=== PATIENT | female | born 1955 | race Caucasian/White ===

== ENCOUNTER 2020-03-28 21:37 | Emergency (ER) | payer MEDICARE, MEDICAID ==
[~2020-03-28] VITALS: Ht 162.5 cm; Wt 58.9 kg
[2020-03-28] MEDS ORDERED: LACTATED RINGERS 1,000 ML IV ONE (22:00)
[2020-03-28] MEDS ORDERED: BENZONATATE 100 MG (TESSALON) CAPSULE PO ONE (22:00)
[2020-03-28 22:08] LABS: BASOPHILS % (AUTO) 0 % (0-10); EOSINOPHILS % (AUTO) 1 % (0-10); HEMATOCRIT 34 % (35-52); HEMOGLOBIN 11.5 g/dL (11.5-16.0); LYMPHOCYTES # (AUTO) 1.2 10^3/uL (1.0-4.0); LYMPHOCYTES % (AUTO) 28 % (12-44); MEAN CORPUSCULAR HEMOGLOBIN 30 pg (25-34); MEAN CORPUSCULAR HGB CONC 34 g/dL (32-36); MEAN CORPUSCULAR VOLUME 90 fL (80-99); MEAN PLATELET VOLUME 8.8 fL (9.0-12.2); MONOCYTES # (AUTO) 0.3 10^3/uL (0.0-1.0); MONOCYTES % (AUTO) 7 % (0-12); NEUTROPHILS # (AUTO) 2.7 10^3/uL (1.8-7.8); NEUTROPHILS % (AUTO) 64 % (42-75); PLATELET COUNT 296 10^3/uL (130-400); WHITE BLOOD COUNT 4.1 10^3/uL (4.3-11.0)
[2020-03-28 22:17] LABS: ALBUMIN 3.9 GM/DL (3.2-4.5)
[2020-03-28 22:18] LABS: POTASSIUM 3.2 MMOL/L (3.6-5.0)
[2020-03-28 22:19] LABS: CALCIUM 8.4 MG/DL (8.5-10.1)
[2020-03-28 22:20] LABS: TOTAL PROTEIN 7.1 GM/DL (6.4-8.2)
[2020-03-28 22:22] LABS: BILIRUBIN,TOTAL 0.3 MG/DL (0.1-1.0)
[2020-03-28 22:24] LABS: CREATININE SERUM 0.98 MG/DL (0.60-1.30)
[2020-03-28] MEDS ORDERED: KCL 10 MEQ TAB (MICRO K) PO ONE (22:45)
--- NOTE | 2020-03-28 22:45 | NUR ---
PATIENT SON CONTACTED WITH PATIENT PERMISSION AND GIVEN UPDATE ON TESTING AND RESULTS THUS FAR. SON NAME IS BRANDON NUMBER IS [phone]. INFORMED WILL CALL WITH MORE INFORMATION IT BECOMES AVAILABLE.
[2020-03-28 23:04] LABS: BILIRUBIN,URINE NEGATIVE (NEGATIVE); CLARITY,URINE CLEAR; COLOR,URINE YELLOW; GLUCOSE, URINE (UA) NEGATIVE (NEGATIVE); KETONES,URINE NEGATIVE (NEGATIVE); LEUKOCYTE ESTERASE ,URINE NEGATIVE (NEGATIVE); NITRITE,URINE NEGATIVE (NEGATIVE); PROTEIN,URINE NEGATIVE (NEGATIVE)
[2020-03-28 23:12] LABS: BACTERIA,URINE NEGATIVE /HPF; SQUAMOUS EPITHELIAL CELL,UR 0-2 /HPF
--- NOTE | 2020-03-28 23:27 | ED General ---
General Chief Complaint: Cough/Cold/Flu Symptoms Stated Complaint: SOB/CHEST PAIN/COVID + Nursing Triage Note: TESTED POSITIVE FOR COVID 19 ON THURSDAY THE March, THIS WAS THE FIRST DAY OF SYMPTOMS ACCORDING TO THE PATIENT. PATIENT ARRIVES VIA EMS TO ROOM 9. IS A&O X4 WITH CALL LIGHT IN REACH. O2 CHALLENGE TO ROOM AIR SUCCESSFUL WITH SATURATIONS IN THE MID 90'S. Nursing Sepsis Screen: Possible Sepsis Risk Source of Information: Patient Exam Limitations: No Limitations History of Present Illness Date Seen by Provider: Mar 28, 2020 Time Seen by Provider: 21:40 Initial Comments This 54-year-old woman presents to the emergency room via EMS with complaints of shortness of breath. EMS reports oxygen saturation was 90% on room air. Her saturations easily resuscitated with nasal cannula support. Patient also reports of worsening cough. She was diagnosed with Covid the day of symptom onset 8 days ago. She was prescribed a azithromycin but no steroids. She denies any history of cardiopulmonary problems. She is not a smoker. She also complains of chest pain, particularly with coughing and deep breathing. Patient has also had persistent diarrhea but no nausea or vomiting. Allergies and Home Medications Allergies Coded Allergies: No Known Drug Allergies (Unverified , 03/29/20) Home Medications Benzonatate 100 Mg Capsule, 200 MG PO TID PRN for COUGH Prescribed by: YOHANA STANFORD on 03/29/2052 Cefdinir 300 Mg Capsule, 300 MG PO BID Prescribed by: YOHANA STANFORD on 03/29/2052 Patient Home Medication List Home Medication List Reviewed: Yes Review of Systems Review of Systems Constitutional: no symptoms reported EENTM: no symptoms reported Respiratory: see HPI Cardiovascular: see HPI Gastrointestinal: see HPI Genitourinary: no symptoms reported : No Musculoskeletal: no symptoms reported Skin: no symptoms reported Psychiatric/Neurological: No Symptoms Reported Hematologic/Lymphatic: No Symptoms Reported Immunological/Allergic: no symptoms reported Past Otjbyfr-Suvxwr-Tuuucn Hx Past Med/Social Hx: Reviewed Nursing Past Med/Soc Hx Patient Social History Alcohol Use: Denies Use Recent Infectious Disease Expo: Yes (COVID 19) Recent Hopitalizations: No Seasonal Allergies Seasonal Allergies: No Past Medical History Surgeries: Yes ("NECK SURGERY FOR ANEURYSM" ELBOW) Orthopedic, Vascular Surgery Respiratory: No Cardiac: No Neurological: No : No Reproductive Disorders: No 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 oz. 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 Skin: Normal Color, Warm/Dry Focused Exam Lactate Level 03/28/20 21:40: Lactic Acid Level 1.30 Lactic Acid Level Progress/Results/Core Measures Suspected Sepsis Recent Fever Within 48 Hours: Yes Infection Criteria Present: Documented Infection New/Unexplained Altered Menta: No Sepsis Screen: Possible Sepsis Risk SIRS Temperature: Pulse: 93 Respiratory Rate: 22 Laboratory Tests 03/28/20 21:40: White Blood Count 4.1L Blood Pressure 127 /56 Mean: 79 03/28/20 21:40: Lactic Acid Level 1.30 Laboratory Tests 03/28/20 21:40: Creatinine 0.98, INR Comment 1.0, Platelet Count 296, Total Bilirubin 0.3 Results/Orders Lab Results Laboratory Tests Test 03/28/20 21:40 03/28/20 22:55 Range/Units White Blood Count 4.1 L 4.3-11.0 10^3/uL Red Blood Count 3.78 L 3.80-5.11 10^6/uL Hemoglobin 11.5 11.5-16.0 g/dL Hematocrit 34 L 35-52 % Mean Corpuscular Volume 90 80-99 fL Mean Corpuscular Hemoglobin 30 25-34 pg Mean Corpuscular Hemoglobin Concent 34 32-36 g/dL Red Cell Distribution Width 11.9 10.0-14.5 % Platelet Count 296 130-400 10^3/uL Mean Platelet Volume 8.8 L 9.0-12.2 fL Immature Granulocyte % (Auto) 0 % Neutrophils (%) (Auto) 64 42-75 % Lymphocytes (%) (Auto) 28 12-44 % Monocytes (%) (Auto) 7 0-12 % Eosinophils (%) (Auto) 1 0-10 % Basophils (%) (Auto) 0 0-10 % Neutrophils # (Auto) 2.7 1.8-7.8 10^3/uL Lymphocytes # (Auto) 1.2 1.0-4.0 10^3/uL Monocytes # (Auto) 0.3 0.0-1.0 10^3/uL Eosinophils # (Auto) 0.0 0.0-0.3 10^3/uL Basophils # (Auto) 0.0 0.0-0.1 10^3/uL Immature Granulocyte # (Auto) 0.0 0.0-0.1 10^3/uL Prothrombin Time 13.0 12.2-14.7 SEC INR Comment 1.0 0.8-1.4 Activated Partial Thromboplast Time 29 24-35 SEC D-Dimer 0.80 H 0.00-0.49 UG/ML Sodium Level 136 135-145 MMOL/L Potassium Level 3.2 L 3.6-5.0 MMOL/L Chloride Level 102 98-107 MMOL/L Carbon Dioxide Level 19 L 21-32 MMOL/L Anion Gap 15 H 5-14 MMOL/L Blood Urea Nitrogen 17 7-18 MG/DL Creatinine 0.98 0.60-1.30 MG/DL Estimat Glomerular Filtration Rate 59 BUN/Creatinine Ratio 17 Glucose Level 111 H 70-105 MG/DL Lactic Acid Level 1.30 0.50-2.00 MMOL/L Calcium Level 8.4 L 8.5-10.1 MG/DL Corrected Calcium 8.5 8.5-10.1 MG/DL Magnesium Level 2.0 1.6-2.4 MG/DL Total Bilirubin 0.3 0.1-1.0 MG/DL Aspartate Amino Transf (AST/SGOT) 22 5-34 U/L Alanine Aminotransferase (ALT/SGPT) 16 0-55 U/L Alkaline Phosphatase 132 40-136 U/L Myoglobin 70.4 10.0-92.0 NG/ML Troponin I < 0.028 <0.028 NG/ML C-Reactive Protein High Sensitivity 3.01 H 0.00-0.50 MG/DL Total Protein 7.1 6.4-8.2 GM/DL Albumin 3.9 3.2-4.5 GM/DL Procalcitonin 0.06 <0.10 NG/ML Urine Color YELLOW Urine Clarity CLEAR Urine pH 6.0 5-9 Urine Specific [place] 1.015 L 1.016-1.022 Urine Protein NEGATIVE NEGATIVE Urine Glucose (UA) NEGATIVE NEGATIVE Urine Ketones NEGATIVE NEGATIVE Urine Nitrite NEGATIVE NEGATIVE Urine Bilirubin NEGATIVE NEGATIVE Urine Urobilinogen 0.2 < = 1.0 MG/DL Urine Leukocyte Esterase NEGATIVE NEGATIVE Urine RBC (Auto) NEGATIVE NEGATIVE Urine RBC NONE /HPF Urine WBC NONE /HPF Urine Squamous Epithelial Cells 0-2 /HPF Urine Crystals NONE /LPF Urine Bacteria NEGATIVE /HPF Urine Casts NONE /LPF Urine Mucus NEGATIVE /LPF Urine Culture Indicated CULTURE PENDING My Orders Orders - YOHANA ZAMORANO MD Ed Iv/Invasive Line Start (03/28/20 21:52) Lactated Ringers (Lr 1000 Ml Iv Solution (03/28/20 22:00) Benzonatate Capsule (Tessalon Perles) (03/28/20 22:00) Cbc With Automated Diff (03/28/20 21:53) Comprehensive Metabolic Panel (03/28/20 21:53) Blood Culture (03/28/20 21:53) Sputum Culture (03/28/20 21:53) Urinalysis (03/28/20 21:53) Urine Culture (03/28/20 21:53) Protime With Inr (03/28/20 21:53) Partial Thromboplastin Time (03/28/20 21:53) Chest 1 View, Ap/Pa Only (03/28/20 21:53) Ed Iv/Invasive Line Start (03/28/20 21:53) Vital Signs Adult Sepsis Patie Q15M (03/28/20 21:53) O2 (03/28/20 21:53) Remove Rings In Anticipation O (03/28/20 21:53) Lactic Acid Analyzer (03/28/20 21:53) Fibrin Degradation Products (03/28/20 22:35) Procalcitonin (Pct) (03/28/20 22:35) Hs C Reactive Protein (03/28/20 22:35) Magnesium (03/28/20 22:35) Ekg Tracing (03/28/20 22:35) Myoglobin Serum (03/28/20 22:35) Monitor-Rhythm Ecg Trace Only (03/28/20 22:35) Lipid Panel (03/29/20 06:00) Ed Iv/Invasive Line Start (03/28/20 22:35) Troponin I (03/28/20 22:35) Potassium Chloride (Tablet) (Klor Con Ta (03/28/20 22:45) Ct Angio Chest W (03/28/20 23:19) Iohexol Injection (Omnipaque 350 Mg/Ml 1 (03/29/20 00:00) Received Contrast (Hold Metformin- Contr (03/29/20 00:00) Ns (Ivpb) (Sodium Chloride 0.9% Ivpb Bag (03/29/20 00:00) Ceftriaxone For Iv Use (Rocephin For I (03/29/20 00:45) Ketorolac Injection (Toradol Injection) (03/29/20 01:00) Hydrocodone/Apap 5/325 Tablet (Lortab 5 (03/29/20 01:15) Hydrocodone/Apap 5/325 Tablet (Lortab 5 (03/29/20 01:10) Medications Given in ED Current Medications Medications Dose Ordered Sig/Ilan Route Start Time Stop Time Status Last Admin Dose Admin Acetaminophen/ Hydrocodone Bitart 1 tab ONCE ONCE PO 03/29/20 01:15 03/29/20 01:16 DC 03/29/20 01:15 1 TAB Benzonatate 200 mg ONCE ONCE PO 03/28/20 22:00 03/28/20 22:01 DC 03/28/20 22:10 200 MG Ceftriaxone Sodium 1000 mg/ Sterile Water 10 ml @ 200 mls/hr ONCE ONCE IV 03/29/20 00:45 03/29/20 00:47 DC 03/29/20 00:51 200 MLS/HR Iohexol 100 ml ONCE ONCE IV 03/29/20 00:00 03/29/20 00:01 DC 03/29/20 00:00 100 ML Ketorolac Tromethamine 15 mg ONCE ONCE IVP 03/29/20 01:00 03/29/20 01:01 DC 03/29/20 00:53 15 MG Lactated Ringer's 1,000 ml @ 0 mls/hr Q0M ONCE IV 03/28/20 22:00 03/28/20 22:01 DC 03/28/20 22:10 1,000 MLS/HR Potassium Chloride 20 meq ONCE ONCE PO 03/28/20 22:45 03/28/20 22:46 DC 03/28/20 22:43 20 MEQ Sodium Chloride 80 ml ONCE ONCE IV 03/29/20 00:00 03/29/20 00:01 DC 03/29/20 00:00 80 ML Vital Signs/I&O 03/28/20 03/28/20 03/29/20 21:40 21:40 01:09 Temp 37.1 Pulse 93 101 Resp 22 21 B/P (MAP) 127/56 (79) 122/92 Pulse Ox 96 95 O2 Delivery Room Air Room Air 03/29/20 00:00 Intake Total 1000 ml Balance 1000 ml Capillary Refill : Less Than 3 Seconds Blood Pressure Mean: 79 Progress Note #1: Time: 23:52 Progress Note Patient is feeling improved after receiving Tessalon Perles and a liter of IV fluid. Labs have been reviewed. She has mildly hypokalemic and was given oral potassium replacement in addition to IV LR. Labs were mostly unremarkable. D- dimer was elevated and CT angiogram of the chest is being obtained. There is no suggestion of concurrent bacterial pneumonia based on her work-up. Progress Note #2: Progress Note CT angiogram was negative for pulmonary emboli. However, there was a rounded density in the left lower lung concerning for infection and/or neoplasm. For t his reason further antibiotic therapy was pursued. She was given a dose of Rocephin in the ER which was followed by Omnicef prescription. She was advised to follow-up with her primary care provider in about 2 weeks for a discussion regarding monitoring of this density. ECG Initial ECG Impression Date: Mar 28, 2020 Initial ECG Impression Time: 22:54 Initial ECG Rate: 101 Initial ECG Rhythm: S.Tach Initial ECG Intervals: Normal Comment Sinus tachycardia with no ST elevation or depression. No abnormal intervals or axis deviation. Diagnostic Imaging Diagonstic Imaging: Xray Plain Films/CT/US/NM/MRI: chest Comments Chest x-ray viewed by me. Report not yet available. No focal consolidations or infiltrates to suggest pneumonia. Diagonstic Imaging: CT Plain Films/CT/US/NM/MRI: chest Comments CT angiogram of the chest was reviewed by me and stat rad report reviewed. Impression states "3.2 cm rounded density left lower lobe, which could be infectious versus neoplastic. Advise follow-up. Right lung nodules up to 6 mm, advise follow-up according to establish criteria." Patient was advised to seek follow-up with her primary care provider to discuss these results. Departure Impression Primary Impression: COVID-19 Additional Impressions: Chest pain Qualified Codes: R07.9 - Chest pain, unspecified Dyspnea Qualified Codes: R06.00 - Dyspnea, unspecified Hypokalemia Diarrhea Qualified Codes: R19.7 - Diarrhea, unspecified Lung density on x-ray Disposition: 01 HOME, SELF-CARE Condition: Improved Departure-Patient Inst. Decision time for Depature: 00:51 Patient Instructions: Coronavirus Disease 2019 (COVID-19) Overview, Hypokalemia (DC) Add. Discharge Instructions: Follow-up with Dr. Gold in the next couple of weeks. Discussed further imaging of the density found in your left lung on the CT scan. This needs to be follo wed in the primary care setting with more imaging in the future. Drink plenty of clear liquids to stay well-hydrated. You may treat your pain with ibuprofen up to 600 mg every 6 hours as needed and/or Tylenol (acetaminophen) up to 1000 mg every 6 hours as needed. Complete your antibiotics as prescribed. Call with questions or concerns. Return to the ER with worsening condition. All discharge instructions reviewed with patient and/or family. Voiced understanding. Scripts Benzonatate (TESSALON PERLES) 100 Mg Capsule 200 MG PO TID PRN for COUGH, #20 CAP Prov: YOHANA ZAMORANO MD 03/29/20 Cefdinir (Cefdinir) 300 Mg Capsule 300 MG PO BID, #14 CAP 0 Refills Prov: YOHANA ZAMORANO MD 03/29/20 Copy Copies To 1: JL GOLD JOSHUA T MD Mar 28, 2020 23:27
--- NOTE | 2020-03-28 23:30 | NUR ---
PATIENT IS RESTING QUIETLY IN ROOM WITH CALL LIGHT IN REACH, MONITORING MAINTAINED. DENIES NEEDS AT THIS TIME.
[2020-03-29] MEDS ORDERED: NS 100 ML (IVPB) BAG IV ONE
[2020-03-29] MEDS ORDERED: HOLD METFORMIN - RECEIVED CONTRAST 20 ML VIAL IV SCH
[2020-03-29] MEDS ORDERED: IOHEXOL 350 MG/ML 100 ML (OMNIPAQUE 350) VIAL IV ONE
--- NOTE | 2020-03-29 00:39 | NUR ---
TO ROOM TO CHECK ON PATIENT, DENIES NEEDS AT THIS TIME. VERBALIZES IS FEELING BETTER AND ASKING IF SHE MAY BE ABLE TO GO HOME. ENCOURAGEMENT OFFERED FOR HER POTENTIAL TO BE ABLE TO GO HOME, THAT WE ARE WAITING FOR THE RESULTS OF THE CT SCAN. ACKNOWLEDGED BY PATIENT. CALL LIGHT IN REACH ENCOURAGED TO CALL WITH ADDITIONAL NEEDS.
[2020-03-29] MEDS ORDERED: cefTRIAXone FOR IV USE 1,000 MG in WATER (STERILE) FOR INJECTION 10 ML IV ONE (00:45)
[2020-03-29] MEDS ORDERED: BENZ100C18 PO (00:53)
[2020-03-29] MEDS ORDERED: CEFD300C3 PO (00:53)
[2020-03-29] MEDS ORDERED: KETOROLAC 30 MG/ML VIAL IVP ONE (01:00)
[2020-03-29 01:09] VITALS: BP 122/92
[2020-03-29] MEDS ORDERED: HYDROcodone/APAP 5 MG/325 MG (LORTAB) TAB ONE (01:10)
[2020-03-29] MEDS ORDERED: HYDROcodone/APAP 5 MG/325 MG (LORTAB) TAB PO ONE (01:15)
--- NOTE | 2020-03-29 06:27 | Diagnostic Imaging Report ---
PROCEDURE: CT angiography of the chest with contrast. TECHNIQUE: Multiple contiguous axial images were obtained through the chest after uneventful bolus administration of intravenous contrast. 3D reconstructed CTA MIP acquisitions were also performed. Auto Exposure Controls were utilized during the CT exam to meet ALARA standards for radiation dose reduction. INDICATION: Cough and shortness of air. Evaluation of pulmonary arterial system is without evidence of thromboembolism. No filling defects are seen within central, lobar or segmental branches. Thoracic aorta is normal caliber. No dissection is seen. There is no pericardial or pleural fluid. No axillary lymphadenopathy is detected. No definite mediastinal lymphadenopathy seen. There appears to be prominent lymph node in the left hilum, indeterminate measuring approximately 16 mm x 15 mm. Pulmonary parenchymal evaluation does show small density in the right upper lobe approximately 5 mm in size, indeterminate. There is a rounded airspace density in the left lower lobe measuring 3.2 cm in size, indeterminate. Some minimal infiltrate right lower lobe is seen. Upper abdomen is unremarkable. IMPRESSION: 1. No evidence of pulmonary embolism or thoracic aortic dissection. 2. A 3.2 cm rounded airspace density left lower lobe. This is likely on an infectious/inflammatory basis but follow-up after course of therapy is recommended to confirm clearing. Follow-up of the 5 mm nodule right upper lobe could be performed at the same time as well. Dictated by: Dictated on workstation # [id number]
--- NOTE | 2020-03-29 06:38 | Diagnostic Imaging Report ---
HISTORY: Cough and shortness of air COMPARISON: CT from 03/28/2020 TECHNIQUE: Frontal view of the chest FINDINGS: There is mild airspace opacity at the left lung base. This is better seen on the subsequent CT of the chest. No pleural effusion or pneumothorax is seen. The cardiac silhouette is normal in size. IMPRESSION: 1. Left basilar airspace opacity, described on subsequent CT of the chest. Dictated by: Dictated on workstation # [id number]
== END 2020-03-29 01:09 | disposition home or self-care (01) ==
LOC: EDBD 21:40 → ER 21:40
DX: U07.1 COVID-19 (principal); R06.00 Dyspnea, unspecified; E87.6 Hypokalemia
CPT/HCPCS: 36415; 71045; 71275; 80053; 81000; 83605; 83735; 83874; 84145; 84484; 85025; 85379; 85610; 85730; 86141; 87040; 87088; 93005; 93041